=== PATIENT | male | born 1955 | race Caucasian/White ===

== ENCOUNTER 2018-02-13 13:24 | Outpatient (CLI) | payer BC, MEDICARE ==
[2018-02-13 14:16] LABS: #Basophils 0.1 thou/uL (0.0-0.2); #Eosinphils 0.2 thou/uL (0.0-0.7); #Lymphocytes 1.6 thou/uL (1.20-3.40); #Monocytes 0.7 thou/uL (0.11-0.59); #Neutrophils 4.1 thou/uL (1.40-6.50); %Basophils 0.9 % (0.0-1.0); %Eosinophils 3.1 % (0.0-10.0); %Lymphocytes 23.7 % (21.0-51.0); %Monocytes 10.7 % (0.0-10.0); %Neutrophils 61.6 % (42.0-75.0); Hemoglobin 13.8 g/dL (14.0-18.0); Mean Corpuscular HGB CONC 32.9 g/dL (32.0-36.0); Mean Corpuscular Hemoglobin 30.5 pg (27.0-31.0); Mean Corpuscular Volume 92.8 fL (78.0-98.0); Mean Platelet Volume 7.3 fL (7.4-10.4); Platelet Count 239 thou/uL (130-400); RBC Distribution Width 11.6 % (11.5-14.5); Red Blood Cell (RBC) Count 4.53 mill/uL (4.70-6.10); White Blood Cell (WBC) Count 6.6 thou/uL (4.8-10.8)
[2018-02-13 14:35] LABS: Anion Gap 10 mmol/L (10-20); BUN (Urea Nitrogen) 14 mg/dL (8.4-25.7); Calc. Creatinine Clearance 0 mL/min (70-130); Calcium 9.1 mg/dL (7.8-10.44); Carbon Dioxide 24 mmol/L (23-31); Chloride 105 mmol/L (98-107); Estimated GFR-MDRD Greater than 90; Glucose 89 mg/dL (80-115); Potassium 4.4 mmol/L (3.5-5.1); Sodium 135 mmol/L (136-145)
== END 2018-02-13 13:25 | disposition home or self-care (01) ==
LOC: LABBT 13:24
PROVIDERS: ATTEND Surgery
DX: Z01.818 Encounter for other preprocedural examination (principal); K64.8 Other hemorrhoids
CPT/HCPCS: 80048; 85025; 93005; 93010

== ENCOUNTER 2018-02-15 06:47 | Day surgery (SDC) | payer BC, MEDICARE ==
[2018-02-13 14:24] VITALS: BMI 35.1
[2018-02-15] MEDS ORDERED: cefOXitin 2 GM VIAL ONE (08:13)
[2018-02-15] MEDS ORDERED: Sodium Chloride 0.9% 100 ML ONE (08:13)
[2018-02-15] MEDS ORDERED: Lidocaine 2% PF 5 ML VIAL ONE (08:20)
[2018-02-15] MEDS ORDERED: Lidocaine 2% Jelly 5 ML TUBE ONE (08:20)
[2018-02-15] MEDS ORDERED: Bupivacaine/Epinephrine 0.25% 30 ML VIAL ONE (08:20)
[2018-02-15] MEDS ORDERED: Fentanyl 100 MCG/2 ML VIAL ONE ×2 (08:26→09:36)
[2018-02-15] MEDS ORDERED: HYDROcodone/Acetaminophen 5/325 mg Tablet ONE (10:16)
--- NOTE | 2018-02-15 11:59 | OP ---
DATE OF PROCEDURE: 02/15/2018 PREOPERATIVE DIAGNOSIS: Prolapsing internal hemorrhoids. POSTOPERATIVE DIAGNOSIS: Prolapsing internal hemorrhoids. PROCEDURE PERFORMED: PPH stapled hemorrhoidectomy. SURGEON: Venkata Wells M.D. ANESTHESIA: General. ESTIMATED BLOOD LOSS: Minimal. COMPLICATIONS: None. SPECIMEN: Hemorrhoid. TECHNIQUE: The patient was taken to the operating room and placed supine on the table. After genera l anesthetic was obtained, he was placed in prone position. His buttock taped open. His area is prepped and draped in a sterile fashion. Rectal exam reveals prolapsing internal hemorrhoid s, but no mass. The sphincter protecting device internal obturator was placed. The sphincter protec ting device is sewn in place using enclosed silk. The 2-0 Prolene was used to make a pursestring 2 c m above the dentate line. Stapler was opened to its fullest extent. The anvil was placed above the pursestring. The sutures for the pursestring are pulled through the stapler under tension held on th e sutures. The stapler is tightened down to the green zone. It is fired. There is a good ring of s taple line and a good ring of hemorrhoid tissue. A few bleeders on the staple line were oversewn usi ng Vicryl suture. There is no active bleeding. Gelfoam and lidocaine jelly packed in the anal canal . The sphincter protector was removed. The patient is en route to recovery in stable condition. Al l instrument counts, needle counts, lap counts were correct.
== END 2018-02-15 11:38 | disposition home or self-care (01) ==
LOC: SDC 06:47
PROVIDERS: ATTEND Surgery
PROC: 065Y0ZC Destruction of Hemorrhoidal Plexus, Open Approach (ICD-10-PCS; principal; 2018-02-15)
DX: K64.8 Other hemorrhoids (principal); K64.4 Residual hemorrhoidal skin tags; I10 Essential (primary) hypertension; Z79.82 Long term (current) use of aspirin; Z79.899 Other long term (current) drug therapy
CPT/HCPCS: 88304; 96374; J0131; J0694; J2001; J3010; J7050

== ENCOUNTER 2019-01-10 08:33 | Outpatient (CLI) | payer BC, MEDICARE ==
[2019-01-10 12:45] LABS: #Basophils 0.1 thou/uL (0.0-0.2); #Eosinphils 0.3 thou/uL (0.0-0.7); #Lymphocytes 2.7 thou/uL (1.20-3.40); #Monocytes 0.8 thou/uL (0.11-0.59); #Neutrophils 5.2 thou/uL (1.40-6.50); %Eosinophils 3.3 % (0.0-10.0); %Monocytes 8.9 % (0.0-10.0); %Neutrophils 56.8 % (42.0-75.0); Hemoglobin 14.5 g/dL (14.0-18.0); Mean Corpuscular HGB CONC 33.4 g/dL (32.0-36.0); Mean Corpuscular Hemoglobin 30.5 pg (27.0-31.0); Mean Corpuscular Volume 91.4 fL (78.0-98.0); Mean Platelet Volume 7.1 fL (7.4-10.4); Platelet Count 228 thou/uL (130-400); RBC Distribution Width 12.3 % (11.5-14.5); Red Blood Cell (RBC) Count 4.75 mill/uL (4.70-6.10); White Blood Cell (WBC) Count 9.1 thou/uL (4.8-10.8)
[2019-01-10 12:49] LABS: INR-International Normal Ratio 0.9; Prothrombin Time 12.6 SEC (12.0-14.7)
[2019-01-10 13:06] LABS: Anion Gap 16 mmol/L (10-20); BUN (Urea Nitrogen) 17 mg/dL (8.4-25.7); Calc. Creatinine Clearance 0 mL/min (70-130); Calcium 9.5 mg/dL (7.8-10.44); Carbon Dioxide 23 mmol/L (23-31); Chloride 104 mmol/L (98-107); Estimated GFR-MDRD 73; Glucose 94 mg/dL (80-115); Potassium 4.4 mmol/L (3.5-5.1); Sodium 139 mmol/L (136-145)
[2019-01-10 15:18] LABS: Bilirubin Negative (Negative); Blood, Urine Negative (Negative); Clarity Clear (Clear); Glucose, Urine (Dipstick) Normal (Negative); Leukocyte Negative Leu/uL (Negative); Mucous/LPF 2+ LPF (<2+); Nitrite Negative (Negative); Protein, Urine (Dipstick) 10 mg/dL (Neg-Trace); RBC/HPF 0-3 HPF (0-3); Squamous Epithelial None Seen HPF (0-3); Urobilinogen Normal mg/dL (Less than 2); WBC/HPF 0-3 HPF (0-3)
[2019-01-10 15:27] LABS: Bacteria/HPF None Seen HPF (None Seen)
== END 2019-01-10 08:34 | disposition home or self-care (01) ==
LOC: LABBT 08:33
PROVIDERS: ATTEND Orthopaedic Surgery
DX: Z01.818 Encounter for other preprocedural examination (principal); M17.11 Unilateral primary osteoarthritis, right knee
CPT/HCPCS: 80048; 81001; 85025; 85610; 87081; 93005; 93010

== ENCOUNTER 2019-01-10 17:00 | Inpatient (IN) | payer BC, MEDICARE ==
[2019-01-10 12:40] VITALS: BMI 34.0
[2019-01-21] MEDS ORDERED: Sodium Chloride 0.9% 100 ML ONE (07:08)
[2019-01-21] MEDS ORDERED: Tranexamic Acid 1,000 MG/10 ML VIAL ONE ×2 (07:08→11:37)
[2019-01-21] MEDS ORDERED: Vancomycin HCl 1.5 GM in Sodium Chloride 0.9% 250 ML 300 ML IVPB SCH ×3 (07:15→10:45)
[2019-01-21 07:48] LABS: Prothrombin Time 13.2 SEC (12.0-14.7)
[2019-01-21] MEDS ORDERED: Midazolam HCl 2 mg/2 ml Vial ONE (07:56)
[2019-01-21] MEDS ORDERED: Fentanyl 100 MCG/2 ML VIAL ONE ×4 (07:56→12:16)
[2019-01-21] MEDS ORDERED: traMADol HCl 50 MG TAB PO PRN (08:22)
[2019-01-21] MEDS ORDERED: Promethazine HCl 25 MG/ML VIAL IM PRN ×3 (08:22→12:54)
[2019-01-21] MEDS ORDERED: Ondansetron PF 4 MG/2 ML Vial IVP PRN ×2 (08:22→09:46)
[2019-01-21] MEDS ORDERED: Zolpidem Tartrate 5 MG TAB PO PRN ×2 (08:22→09:46)
[2019-01-21] MEDS ORDERED: Ropivacaine HCl/PF 250 ML in Premix Bag 1 BAG NERVE BLCK SCH (08:22)
[2019-01-21] MEDS ORDERED: HYDROcodone/Acetaminophen 10/325 mg Tablet PO PRN (08:22)
[2019-01-21] MEDS ORDERED: Acetaminophen 325 MG TAB PO PRN (09:46)
[2019-01-21] MEDS ORDERED: cloNIDine 0.1 MG TAB PO PRN (09:49)
[2019-01-21] MEDS ORDERED: Tranexamic Acid 1,000 MG in Sodium Chloride 0.9% 100 ML IVPB SCH (10:00)
[2019-01-21] MEDS ORDERED: Morphine 10 MG/ML VIAL ONE (10:11)
[2019-01-21] MEDS ORDERED: Bupivacaine PF 0.5% 30 ML VIAL ONE (10:19)
--- NOTE | 2019-01-21 11:41 | OP ---
DATE OF PROCEDURE: 01/21/2019 SILVER [employer]ER BLASTING: Young To PA-C PREOPERATIVE DIAGNOSES: Right knee osteoarthrosis. POSTOPERATIVE DIAGNOSES: Right knee osteoarthrosis. PROCEDURE PERFORMED: Right total knee replacement using Emeli pinless navigation. ESTIMATED BLOOD LOSS: 150 mL. TOURNIQUET TIME: NONE. COMPLICATIONS: None. IMPLANTS: [place] [employer] total knee system, we used a size 6 cruciate- retaining femur. We used a size 6 primary tibial baseplate. We used a 6 x 9 mm CS X3 tibial bearing and an asymmetric 35 x 10 X3 patella. DISPOSITION: He did go to recovery room in stable condition. INDICATIONS: This is a 63-year-old male, who comes in complaining of significant right knee pain. He has failed nonoperative treatment. The patient has a previous history of dysvascular leg and has had multiple stents in the right leg. PROCEDURE IN DETAIL: After all appropriate consent forms were explained and signed, the patient was taken back to the operating room and at this time was given general anesthetic. Once the level of anesthesia was appropriate, the right leg was then prepped and draped in standard surgical fashion. Midline incision was made with a 10 blade down through the skin and subcutaneous tissue. Bovie electrocautery was used to coagulate any brisk venous bleeding. A new blade was used to make a medial parapatellar arthrotomy. Small subperiosteal release was performed medially and excess fat pad was removed. The knee was flexed up to gain access to the femur. The femur was navigated and distal femoral resection was made. Epicondylar access was used to align our sizing jig and this was pinned in place. We sized our femur to be a size 6 cruciate-retaining femur. 4:1 cutting block was applied and pinned. Anterior and posterior chamfer cuts were then made. We navigated out our proximal tibia and made our proximal tibial resection. Spreaders were used to remove any posterior osteophytes off the back of the femur as well as remaining meniscal tissue. A long alignment ginny was then used to achieve correct rotation of our tibial baseplate and we used a size 6 primary tibial baseplate was chosen. This was pinned in place. We trialed the polyethylene and we used a 6 x 9 mm CS X3 tibial bearing polyethylene gave us full extension and good stability throughout range of motion. Two towel clips and a saw were used to cut our patella. Three lug nuts were drilled and an asymmetric 35 x 10 X3 patella was trialed which sat nicely in the trochlear groove. We then drilled our femur and punched our tibia. All components were removed. The knee was thoroughly irrigated and dried. Cement was mixed into the cement gun on the back table. Components were then placed. The knee was held out in full extension until the cement had dried. All excess bone cement was removed. Multiple #2 Vicryl stitches as well as a Quill were used to close our extensor mechanism. 0 Quill followed by a running Monoderm was then used to close the skin. Surgicel glue was then used on the skin. Once this had dried, soft tissue dressing was applied to the limb, The patient was then awakened and taken to the recovery room in stable condition. All counts were correct at the end of the case. The patient did receive preoperative IV antibiotics. The patient was injected with Marcaine for postoperative pain relief. Job ID: [id number] [facility]
[2019-01-21] MEDS ORDERED: Morphine 4 MG/ML VIAL ONE (12:33)
[2019-01-21] MEDS ORDERED: Promethazine HCl 25 MG/ML VIAL IM/IV PRN (12:37)
[2019-01-21] MEDS ORDERED: PACU-Morphine 4MG/ML VIAL SLOW IVP PRN (12:37)
[2019-01-21] MEDS ORDERED: Morphine Sulfate 2 MG/ML SYRINGE SLOW IVP PRN (12:37)
[2019-01-21] MEDS ORDERED: Non-Formulary Medication 1 EACH PO PRN (12:37)
[2019-01-21] MEDS ORDERED: Ondansetron HCl/PF 4 MG/2 ML Vial IVP PRN ×2 (12:37→12:54)
[2019-01-21] MEDS ORDERED: Ketorolac Tromethamine 30 MG/ML VIAL ONE (12:50)
[2019-01-21] MEDS ORDERED: Promethazine HCl 25 MG/ML VIAL SLOW IVP PRN (12:54)
[2019-01-21] MEDS ORDERED: Bupivacaine HCl 0.5%/Epinephrine 1:200,000/PF 30 ml Vial ONE (13:31)
[2019-01-21] MEDS ORDERED: Ropivacaine 0.2% HCl/PF (40 MG/20 ML VIAL) ONE (13:31)
[2019-01-21] MEDS ORDERED: Ropivacaine 0.5% HCl/PF (150 MG/30 ML VIAL) ONE (13:31)
[2019-01-21] MEDS ORDERED: PROPOFOL 200 MG/20 ML VIAL ONE (13:55)
[2019-01-21] MEDS ORDERED: Ondansetron PF 4 MG/2 ML Vial ONE (13:55)
[2019-01-21] MEDS ORDERED: Lidocaine 1% PF 5 ML VIAL ONE (13:55)
[2019-01-21] MEDS ORDERED: ePHEDrine 50 MG/ML VIAL ONE (13:55)
[2019-01-21] MEDS: Ketorolac Tromethamine 30 MG/ML VIAL IVP SCH ×3 (14:32→23:15)
[2019-01-21] MEDS: Sodium Chloride 0.9% 1,000 ML IV SCH ×2 (14:32→21:47)
[2019-01-21] MEDS: HYDROcodone/Acetaminophen 10/325 mg Tablet PO PRN ×2 (14:37→21:17)
[2019-01-21] MEDS: CEFAZOLIN 2 GM in Premix Bag 1 BAG IVPB SCH ×2 (14:39→23:16)
[2019-01-21] MEDS: Ferrous Gluconate 324 MG TAB PO SCH (20:33)
[2019-01-21] MEDS: Ezetimibe 10 MG TAB PO SCH (20:33)
[2019-01-21] MEDS: Atorvastatin Calcium 40 MG TAB PO SCH (20:33)
[2019-01-21] MEDS: Aspirin 81 mg Enteric Coated Tablet PO SCH (20:33)
[2019-01-21] MEDS: Loratadine 10 MG TAB PO SCH (20:34)
[2019-01-21] MEDS: Senokot S 8.6-50 MG TAB PO SCH (20:34)
[2019-01-21] MEDS: Azelastine 137 MCG/Spray 30 ML FS SCH (21:12)
[2019-01-22] MEDS: HYDROcodone/Acetaminophen 10/325 mg Tablet PO PRN ×6 (02:10→22:31)
[2019-01-22] MEDS: Sodium Chloride 0.9% 1,000 ML IV SCH ×2 (03:33→17:03)
[2019-01-22 04:41] LABS: Hemoglobin 11.1 g/dL (14.0-18.0); Mean Corpuscular HGB CONC 34.5 g/dL (32.0-36.0); Mean Corpuscular Hemoglobin 31.7 pg (27.0-31.0); Mean Platelet Volume 7.2 fL (7.4-10.4); Platelet Count 172 thou/uL (130-400); RBC Distribution Width 11.9 % (11.5-14.5); Red Blood Cell (RBC) Count 3.51 mill/uL (4.70-6.10); White Blood Cell (WBC) Count 8.7 thou/uL (4.8-10.8)
[2019-01-22] MEDS: Ketorolac Tromethamine 30 MG/ML VIAL IVP SCH ×3 (05:08→17:39)
[2019-01-22] MEDS: traMADol HCl 50 MG TAB PO PRN ×2 (05:14→12:42)
[2019-01-22] MEDS: Polyethylene Glycol 3350 17 GM Packet PO SCH (07:59)
[2019-01-22] MEDS: Multivitamin W/ Minerals 1 TAB PO SCH (08:00)
[2019-01-22] MEDS: Allopurinol 300 MG TAB PO SCH (08:00)
[2019-01-22] MEDS: Metoprolol Tartrate 50 MG TAB PO SCH (08:00)
[2019-01-22] MEDS: Ferrous Gluconate 324 MG TAB PO SCH ×2 (08:00→21:00)
[2019-01-22] MEDS: Senokot S 8.6-50 MG TAB PO SCH ×2 (08:00→21:01)
[2019-01-22] MEDS: Fish Oil 1,000 MG CAP PO SCH (08:00)
[2019-01-22] MEDS: Clopidogrel Bisulfate 75 MG TAB PO SCH (08:01)
[2019-01-22] MEDS: Amlodipine 5 MG TAB PO SCH (08:01)
[2019-01-22] MEDS: Aspirin 81 mg Enteric Coated Tablet PO SCH ×2 (08:01→21:00)
[2019-01-22] MEDS: Losartan 25 MG TAB PO SCH (08:02)
[2019-01-22] MEDS: Azelastine 137 MCG/Spray 30 ML FS SCH ×2 (08:10→21:06)
[2019-01-22] MEDS: Fentanyl 100 MCG/2 ML VIAL SLOW IVP PRN (09:18)
[2019-01-22] MEDS: Fluticasone Propionate Nasal Spray 16 gm Bottle NASAL SCH (10:24)
--- NOTE | 2019-01-22 11:01 | PRG ---
DATE OF SERVICE: 01/22/2019 SUBJECTIVE: Edgardo is a 63-year-old male who is postop day 1 from a right total knee arthroplasty. He is doing relatively well. His pain is very well controlled with block and his oral medications. He has no complaints currently. Edgardo walked 300 feet this morning. OBJECTIVE: VITAL SIGNS: Temperature 98.2, pulse 72, respiratory rate 18, blood pressure is 134/71. GENERAL: He is alert and oriented to person, place, time, and situation. Responsive to appropriate with examiner. Grossly nonfocal. EXTREMITIES: His incision is clean. There is no strike through. No erythema. NEUROLOGIC: He is neurovascularly intact. LABORATORY DATA: Hemoglobin and hematocrit 11.1 and 32.2. IMPRESSION: A 63-year-old male postop day 1, right total knee arthroplasty doing exceptionally well. PLAN: Continue current care. Probable discharge home tomorrow. Job ID: [id number]
[2019-01-22] MEDS ORDERED: Polyethylene Glycol 3350 17 GM Packet PO PRN (11:10)
--- NOTE | 2019-01-22 19:15 | PDOC.HOSPP ---
- Subjective Encounter Date: 01/22/19 Encounter Time: 15:00 Subjective: pt up in chair no complains - Objective Vital Signs & Weight: Vital Signs (12 hours) Temp Pulse Resp BP BP Pulse Ox 01/22/19 15:20 98.5 F 69 18 152/73 H 97 01/22/19 08:01 72 134/71 01/22/19 07:53 98.2 F 72 18 134/71 98 Weight Admit Weight 258 lb Weight 258 lb I&O: 01/21/19 01/22/19 01/23/19 06:59 06:59 06:59 Intake Total 1550 Balance 1550 Result Diagrams: 01/22/19 03:53 Hospitalist ROS - Review of Systems Respiratory: denies: cough, dry, shortness of breath, hemoptysis, SOB with excertion, pleuritic pain, sputum, wheezing, other Cardiovascular: denies: chest pain, palpitations, orthopnea, paroxysmal noc. dyspnea, edema, light headedness, other Gastrointestinal: denies: nausea, vomiting, abdominal pain, diarrhea, constipation, melena, hematochezia, other - Medication Medications: Active Medications Generic Name Dose Route Start Last Admin Trade Name Freq PRN Reason Stop Dose Admin Hydrocodone Bitart/Acetaminophen 2 tab 01/21/19 08:22 01/22/19 18:33 [place] 10/325 PO 2 tab Q4H PRN Administration PAIN (4-6) Allopurinol 300 mg 01/22/19 09:00 01/22/19 08:00 Zyloprim PO 300 mg DAILY GERARD Administration Amlodipine Besylate 2.5 mg 01/22/19 09:00 01/22/19 08:01 Norvasc PO 2.5 mg DAILY GERARD Administration Aspirin 81 mg 01/21/19 21:00 01/22/19 08:01 Ecotrin PO 81 mg BID GERARD Administration Atorvastatin Calcium 80 mg 01/21/19 21:00 01/21/19 20:33 Lipitor PO 80 mg QPM GERARD Administration Azelastine HCl 0 ml 01/21/19 21:00 01/22/19 08:10 Azelastine FS 2 spr BID GERARD Administration Cholecalciferol 1,000 units 01/22/19 09:00 01/22/19 08:02 Vitamin D3 PO 1,000 units DAILY GERARD Administration Clopidogrel Bisulfate 75 mg 01/22/19 09:00 01/22/19 08:01 Plavix PO 75 mg DAILY GERARD Administration Ezetimibe 10 mg 01/21/19 21:00 01/21/19 20:33 Zetia PO 10 mg HS GERARD Administration Fentanyl 50 mcg 01/21/19 08:23 01/22/19 09:18 Sublimaze SLOW IVP 50 mcg Q1H PRN Administration Breakthrough Pain Ferrous Gluconate 324 mg 01/21/19 21:00 01/22/19 08:00 Fergon PO 324 mg BID GERARD Administration Fish Oil 1,000 mg 01/22/19 09:00 01/22/19 08:00 Fish Oil PO 1,000 mg DAILY GERARD Administration Fluticasone Propionate 0 gm 01/22/19 09:00 01/22/19 10:24 Flonase Nasal [place] NASAL 2 spray DAILY GERARD Administration Ropivacaine 250 ml/ Device 250 mls @ 10 mls/hr 01/21/19 08:22 01/22/19 12:36 NERVE BLCK 250 mls INF GERARD Administration As Directed Sodium Chloride 1,000 mls @ 100 mls/hr 01/21/19 10:00 01/22/19 17:03 Normal Saline 0.9% IV Not Given .Q10H GERARD Iron/Minerals/Multivitamins 1 tab 01/22/19 09:00 01/22/19 08:00 Theragran M PO 1 tab DAILY GERARD Administration Ketorolac Tromethamine 30 mg 01/21/19 12:00 01/22/19 17:39 Toradol IVP 01/23/19 06:01 30 mg Q6HR GERARD Administration Loratadine 10 mg 01/21/19 21:00 01/21/19 20:34 Claritin PO 10 mg QPM GERARD Administration Losartan Potassium 100 mg 01/22/19 09:00 01/22/19 08:02 Cozaar PO 100 mg DAILY GERARD Administration Metoprolol Tartrate 50 mg 01/22/19 09:00 01/22/19 08:00 Lopressor PO 50 mg DAILY GERARD Administration Pantoprazole Sodium 40 mg 01/22/19 09:00 01/22/19 08:00 Protonix PO 40 mg DAILY GERARD Administration Polyethylene Glycol 17 gm 01/22/19 09:00 01/22/19 07:59 Miralax PO 17 gm DAILY GERARD Administration Senna/Docusate Sodium 2 tab 01/21/19 21:00 01/22/19 08:00 Senokot S PO 2 tab BID GERARD Administration Sodium Chloride 10 ml 01/21/19 09:46 01/22/19 08:00 Flush - Normal Saline IVF 10 ml PRN PRN Administration Saline Flush Tramadol HCl 100 mg 01/21/19 08:22 01/22/19 12:42 Ultram PO 100 mg Q6H PRN Administration Moderate Pain 4-6 Vitamin E 1,000 units 01/22/19 09:00 01/22/19 10:24 Vitamin E PO 1,000 units DAILY GERARD Administration - Exam Heart: negative: RRR, no murmur, no gallops, no rubs, normal peripheral pulses, irregular, diminshed peripheral pulses, murmur present, II/IV, III/IV Respiratory: negative: CTAB, no wheezes, no rales, no ronchi, normal chest expansion, no tachypnea, normal percussion, rales, rhonchi, tachypneic, wheezes Gastrointestinal: negative: soft, non-tender, non-distended, normal bowel sounds , no palpable masses, no hepatomegaly, no splenomegaly, no bruit, no guarding, no rigidity, tender to palpation, distended, diminished bowl sounds, voluntary guarding Hosp A/P (1) CAD (coronary artery disease) Code(s): I25.10 - ATHSCL HEART DISEASE OF [place] CORONARY ARTERY W/O ANG PCTRS Status: Acute (2) HTN (hypertension) Code(s): I10 - ESSENTIAL (PRIMARY) HYPERTENSION Status: Acute (3) Hyperlipemia Code(s): E78.5 - HYPERLIPIDEMIA, UNSPECIFIED Status: Acute - Plan pt up in chair no complains, will continue his bp meds, pt has CAD s/o 10 stents. will continue asa/plavix/statin.
[2019-01-22] MEDS: Ezetimibe 10 MG TAB PO SCH (21:00)
[2019-01-22] MEDS: Atorvastatin Calcium 40 MG TAB PO SCH (21:01)
[2019-01-22] MEDS: Loratadine 10 MG TAB PO SCH (21:01)
[2019-01-23] MEDS: Ketorolac Tromethamine 30 MG/ML VIAL IVP SCH ×2 (00:43→06:17)
[2019-01-23] MEDS: ALPRAZolam 0.5 MG TAB PO PRN ×2 (01:36→20:52)
[2019-01-23] MEDS: traMADol HCl 50 MG TAB PO PRN ×2 (01:36→23:04)
[2019-01-23] MEDS: diphenhydrAMINE 25 MG CAP PO PRN ×3 (01:36→23:04)
[2019-01-23] MEDS: Sodium Chloride 0.9% 1,000 ML IV SCH ×3 (03:01→22:59)
[2019-01-23 06:17] LABS: Hemoglobin 10.5 g/dL (14.0-18.0); Mean Corpuscular HGB CONC 33.5 g/dL (32.0-36.0); Mean Corpuscular Hemoglobin 31.1 pg (27.0-31.0); Mean Corpuscular Volume 92.6 fL (78.0-98.0); Mean Platelet Volume 7.2 fL (7.4-10.4); Platelet Count 171 thou/uL (130-400); Red Blood Cell (RBC) Count 3.38 mill/uL (4.70-6.10); White Blood Cell (WBC) Count 8.7 thou/uL (4.8-10.8)
[2019-01-23] MEDS: HYDROcodone/Acetaminophen 10/325 mg Tablet PO PRN ×2 (06:23→12:42)
[2019-01-23] MEDS: Losartan 25 MG TAB PO SCH (09:08)
[2019-01-23] MEDS: Polyethylene Glycol 3350 17 GM Packet PO SCH (09:08)
[2019-01-23] MEDS: Amlodipine 5 MG TAB PO SCH (09:10)
[2019-01-23] MEDS: Allopurinol 300 MG TAB PO SCH (09:12)
[2019-01-23] MEDS: Aspirin 81 mg Enteric Coated Tablet PO SCH ×2 (09:12→21:03)
[2019-01-23] MEDS: Clopidogrel Bisulfate 75 MG TAB PO SCH (09:12)
[2019-01-23] MEDS: Multivitamin W/ Minerals 1 TAB PO SCH (09:12)
[2019-01-23] MEDS: Fish Oil 1,000 MG CAP PO SCH (09:13)
[2019-01-23] MEDS: Ferrous Gluconate 324 MG TAB PO SCH ×2 (09:13→21:03)
[2019-01-23] MEDS: Metoprolol Tartrate 50 MG TAB PO SCH (09:13)
[2019-01-23] MEDS: Azelastine 137 MCG/Spray 30 ML FS SCH ×2 (09:14→21:12)
[2019-01-23] MEDS: Senokot S 8.6-50 MG TAB PO SCH ×2 (09:15→21:03)
[2019-01-23] MEDS: Fluticasone Propionate Nasal Spray 16 gm Bottle NASAL SCH (09:15)
[2019-01-23] MEDS: Fentanyl 100 MCG/2 ML VIAL SLOW IVP PRN (20:45)
[2019-01-23] MEDS: Atorvastatin Calcium 40 MG TAB PO SCH (21:02)
[2019-01-23] MEDS: Ezetimibe 10 MG TAB PO SCH (21:03)
[2019-01-23] MEDS: Loratadine 10 MG TAB PO SCH (21:03)
[2019-01-23] MEDS ORDERED: Lidocaine 2% Viscous Solution 10 ML, Aluminum & Magnesium Hydroxide 30 ML SSW SCH (23:59)
[2019-01-24] MEDS: HYDROcodone/Acetaminophen 10/325 mg Tablet PO PRN ×2 (03:01→08:46)
[2019-01-24 05:21] LABS: Hemoglobin 10.7 g/dL (14.0-18.0); Mean Corpuscular HGB CONC 35.2 g/dL (32.0-36.0); Mean Corpuscular Hemoglobin 31.5 pg (27.0-31.0); Mean Corpuscular Volume 89.6 fL (78.0-98.0); Mean Platelet Volume 7.6 fL (7.4-10.4); Platelet Count 178 thou/uL (130-400); RBC Distribution Width 11.7 % (11.5-14.5); Red Blood Cell (RBC) Count 3.39 mill/uL (4.70-6.10); White Blood Cell (WBC) Count 8.2 thou/uL (4.8-10.8)
[2019-01-24] MEDS: diphenhydrAMINE 25 MG CAP PO PRN (05:38)
[2019-01-24] MEDS: traMADol HCl 50 MG TAB PO PRN ×2 (05:39→11:37)
[2019-01-24] MEDS: Aspirin 81 mg Enteric Coated Tablet PO SCH (08:42)
[2019-01-24] MEDS: Losartan 25 MG TAB PO SCH (08:42)
[2019-01-24] MEDS: Multivitamin W/ Minerals 1 TAB PO SCH (08:44)
[2019-01-24] MEDS: Clopidogrel Bisulfate 75 MG TAB PO SCH (08:44)
[2019-01-24] MEDS: Amlodipine 5 MG TAB PO SCH (08:44)
[2019-01-24] MEDS: Fish Oil 1,000 MG CAP PO SCH (08:44)
[2019-01-24] MEDS: Ferrous Gluconate 324 MG TAB PO SCH (08:45)
[2019-01-24] MEDS: Allopurinol 300 MG TAB PO SCH (08:45)
[2019-01-24] MEDS: Senokot S 8.6-50 MG TAB PO SCH (08:46)
[2019-01-24] MEDS: Metoprolol Tartrate 50 MG TAB PO SCH (08:46)
[2019-01-24] MEDS: Fluticasone Propionate Nasal Spray 16 gm Bottle NASAL SCH (08:51)
[2019-01-24] MEDS: Azelastine 137 MCG/Spray 30 ML FS SCH (08:51)
[2019-01-24] MEDS: Sodium Chloride 0.9% 1,000 ML IV SCH (09:13)
[2019-01-24] MEDS: Polyethylene Glycol 3350 17 GM Packet PO SCH (09:52)
[2019-01-24 11:51] VITALS: BP 148/80; TEMP 98.2
== END 2019-01-24 12:20 | disposition home or self-care (01) | DRG 470 ==
LOC: SJJU 01-21 06:42
PROVIDERS: ADMIT Orthopaedic Surgery; ATTEND Orthopaedic Surgery
PROC: 0SRC0J9 Replacement of Right Knee Joint with Synthetic Substitute, Cemented, Open Approach (ICD-10-PCS; principal; 2019-01-21)
DX: M17.11 Unilateral primary osteoarthritis, right knee (principal); K59.00 Constipation, unspecified; M10.9 Gout, unspecified; I10 Essential (primary) hypertension; E78.00 Pure hypercholesterolemia, unspecified; K21.9 Gastro-esophageal reflux disease without esophagitis; G47.30 Sleep apnea, unspecified; I25.10 Atherosclerotic heart disease of native coronary artery without angina pectoris; E78.5 Hyperlipidemia, unspecified; Z79.899 Other long term (current) drug therapy; Z79.01 Long term (current) use of anticoagulants; Z79.51 Long term (current) use of inhaled steroids; Z95.5 Presence of coronary angioplasty implant and graft
CPT/HCPCS: 36415; 85027; 85610; 86850; 86900; 86901; C1713; C1776; J0131; J0670; J0690; J1885; J2001; J2250; J2270; J2405; J2704; J2795; J3010; J3370; J3490; J7050; Q0163; S0020

== ENCOUNTER 2019-03-15 07:26 | Outpatient (CLI) | payer BC, MEDICARE ==
[2019-03-15 14:33] LABS: #Basophils 0.1 thou/uL (0.0-0.2); #Eosinphils 0.3 thou/uL (0.0-0.7); #Lymphocytes 2.3 thou/uL (1.20-3.40); #Monocytes 0.7 thou/uL (0.11-0.59); #Neutrophils 5.2 thou/uL (1.40-6.50); %Eosinophils 3.7 % (0.0-10.0); %Lymphocytes 26.8 % (21.0-51.0); %Monocytes 8.3 % (0.0-10.0); %Neutrophils 60.2 % (42.0-75.0); Mean Corpuscular HGB CONC 32.3 g/dL (32.0-36.0); Mean Corpuscular Hemoglobin 30.2 pg (27.0-31.0); Mean Corpuscular Volume 93.7 fL (78.0-98.0); Mean Platelet Volume 6.5 fL (7.4-10.4); Platelet Count 254 thou/uL (130-400); RBC Distribution Width 12.6 % (11.5-14.5); Red Blood Cell (RBC) Count 4.31 mill/uL (4.70-6.10); White Blood Cell (WBC) Count 8.7 thou/uL (4.8-10.8)
[2019-03-15 14:38] LABS: Prothrombin Time 12.8 SEC (12.0-14.7)
[2019-03-15 14:52] LABS: Anion Gap 8 mmol/L (10-20); BUN (Urea Nitrogen) 14 mg/dL (8.4-25.7); Calc. Creatinine Clearance 0 mL/min (70-130); Calcium 9.3 mg/dL (7.8-10.44); Carbon Dioxide 30 mmol/L (23-31); Chloride 103 mmol/L (98-107); Estimated GFR-MDRD 57; Glucose 90 mg/dL (80-115); Potassium 4.9 mmol/L (3.5-5.1); Sodium 136 mmol/L (136-145)
--- NOTE | 2019-03-17 14:30 | EKG ---
Test Reason : Blood Pressure : / mmHG Vent. Rate : 062 BPM Atrial Rate : 062 BPM P-R Int : 238 ms QRS Dur : 082 ms QT Int : 404 ms P-R-T Axes : 015 021 015 degrees QTc Int : 410 ms Sinus rhythm with 1st degree A-V block Inferior infarct , age undetermined Abnormal ECG When compared with ECG of 10-JAN-2019 12:23, Inferior infarct is now Present Confirmed by KIMBERLYN WESLEY (2) on 03/17/2019 2:30:15 PM Referred By: LETTY Confirmed By:KIMBERLYN WESLEY
== END 2019-03-15 07:27 | disposition home or self-care (01) ==
LOC: LABBT 07:26
PROVIDERS: ATTEND Orthopaedic Surgery
DX: Z01.818 Encounter for other preprocedural examination (principal); S76.111A Strain of right quadriceps muscle, fascia and tendon, initial encounter
CPT/HCPCS: 80048; 85025; 85610; 93005; 93010

== ENCOUNTER 2019-03-18 05:58 | Day surgery (SDC) | payer BC, MEDICARE ==
[2019-03-15 13:49] VITALS: BMI 34.5
[2019-03-18] MEDS ORDERED: Fentanyl 100 MCG/2 ML VIAL ONE ×4 (06:15→08:55)
[2019-03-18] MEDS ORDERED: Midazolam HCl 2 mg/2 ml Vial ONE (06:15)
[2019-03-18 06:48] LABS: INR-International Normal Ratio 0.9; Prothrombin Time 12.2 SEC (12.0-14.7)
[2019-03-18] MEDS ORDERED: Bupivacaine PF 0.5% 30 ML VIAL ONE (07:52)
[2019-03-18] MEDS ORDERED: Promethazine HCl 25 MG/ML VIAL SLOW IVP PRN (07:53)
[2019-03-18] MEDS ORDERED: Promethazine HCl 25 MG/ML VIAL IM PRN (07:53)
[2019-03-18] MEDS ORDERED: Ondansetron HCl/PF 4 MG/2 ML Vial IVP PRN (07:53)
[2019-03-18] MEDS ORDERED: Morphine 4 MG/ML VIAL ONE (09:12)
--- NOTE | 2019-03-18 09:12 | OP ---
DATE OF PROCEDURE: 03/18/2019 PREOPERATIVE DIAGNOSIS: Quadriceps tendon tear, status post right total knee replacement. POSTOPERATIVE DIAGNOSIS: Quadriceps tendon tear, status post right total knee replacement. PROCEDURE PERFORMED: Open repair of right quad tendon rupture. CUTTER ALUMINUM SHEET: Young To PA-C ESTIMATED BLOOD LOSS: 20 to 30 mL. COMPLICATIONS: None. ANESTHESIA: He had a general anesthetic. We did give him some local for postop pain relief. IMPLANTS: The only implants were some sutures. INDICATIONS: A 63-year-old male, who had a knee replacement done around 2 months ago and at this time, he was found last week to have an area of his quad tendon repair that had opened up and he was having difficulty straightening his leg and also noted a bulge underneath the skin. At this time, he is taken for repair of this. DESCRIPTION OF PROCEDURE: After all appropriate consent forms were explained and signed, he was taken back to the operative room and at this time was given a general anesthetic. Once the level of anesthesia was appropriate, the right lower extremity was prepped and draped in standard surgical fashion. No tourniquet was used throughout this procedure. At this time, a 10 blade was used to incise through his old incision down through skin. Bovie was used to coagulate any brisk venous bleeding. Joint fluid was evacuated at this time since we got underneath the skin. We then made our way down to the quad tendon repair area and there was a small area approximately 1.5 to 2 cm in length, which had opened up. Everything else appeared intact. There was some granulation tissue in the area and this was removed with a curette and a rongeur. We then thoroughly irrigated with a liter of solution. At this time, multiple #2 Vicryl were used to close repair primarily, followed by a #2 Stratafix. We then used a 2-0 Vicryl and nylon sutures to close the remaining area. Prior to closing the skin, we did infiltrate medial and lateral skin flaps with plain Marcaine for postop pain relief. A bulky sterile dressing was then applied as well as a knee immobilizer. The patient was then awakened. He was taken to the recovery room in stable condition. All counts were correct at the end of the case and he did receive preoperative IV antibiotics. Job ID: [id number] [facility]
[2019-03-18] MEDS ORDERED: PROPOFOL 200 MG/20 ML VIAL ONE (09:33)
[2019-03-18] MEDS ORDERED: Ondansetron PF 4 MG/2 ML Vial ONE (09:33)
[2019-03-18] MEDS ORDERED: ePHEDrine/0.9% NaCl/PF SYRINGE 50 mg/10 ml ONE (09:33)
[2019-03-18] MEDS ORDERED: Morphine 2 MG/ML SYRINGE ONE ×2 (09:33→09:47)
[2019-03-18] MEDS ORDERED: HYDROcodone/Acetaminophen 5/325 mg Tablet ONE (10:27)
== END 2019-03-18 11:30 | disposition home or self-care (01) ==
LOC: SDC 05:58
PROVIDERS: ATTEND Orthopaedic Surgery
PROC: 0LQL0ZZ Repair Right Upper Leg Tendon, Open Approach (ICD-10-PCS; principal; 2019-03-18)
DX: S76.111A Strain of right quadriceps muscle, fascia and tendon, initial encounter (principal); I10 Essential (primary) hypertension; F10.21 Alcohol dependence, in remission; Z79.899 Other long term (current) drug therapy; Z95.5 Presence of coronary angioplasty implant and graft; Z96.651 Presence of right artificial knee joint
CPT/HCPCS: 85610; J0690; J2250; J2270; J2405; J2704; J3010; J3370; L1830; S0020

== ENCOUNTER 2019-05-20 09:07 | Outpatient (CLI) | payer BC, MEDICARE ==
--- NOTE | 2019-05-20 09:32 | RAD ---
EXAM: 3 views of the right foot HISTORY: Foot pain COMPARISON: None FINDINGS: 3 views of the right foot shows no evidence of acute fracture or dislocation. No soft tissu e swelling is seen. No degenerative changes are present. IMPRESSION: No evidence of acute osseous abnormality.
== END 2019-05-20 09:08 | disposition home or self-care (01) ==
LOC: SCSRAD 09:07
PROVIDERS: ATTEND Family Medicine
DX: S99.921A Unspecified injury of right foot, initial encounter (principal)

== ENCOUNTER 2021-02-08 12:38 | Outpatient (CLI) | payer MEDICARE, OTHER | END 2021-02-08 12:39 | disposition home or self-care (01) | LOC: TBSIIMAG 12:38 | PROVIDERS: ATTEND Orthopaedic Surgery | DX: M25.551 Pain in right hip (principal); S73.101A Unspecified sprain of right hip, initial encounter; M76.9 Unspecified enthesopathy, lower limb, excluding foot ==

== ENCOUNTER 2022-03-23 09:17 | Outpatient (CLI) | payer MEDICARE, OTHER ==
[2022-03-23] MEDS ORDERED: Iopamidol 370 76% 100 ML VIAL ONE (09:30)
== END 2022-03-23 09:18 | disposition home or self-care (01) ==
LOC: BICCT 09:17 → CT 09:18
PROVIDERS: ATTEND Radiology Radiation Oncology
DX: C25.9 Malignant neoplasm of pancreas, unspecified (principal); R91.8 Other nonspecific abnormal finding of lung field; K65.4 Sclerosing mesenteritis; Z98.890 Other specified postprocedural states
CPT/HCPCS: 71260; 74177; Q9967

== ENCOUNTER 2022-04-16 16:19 | Emergency (ER) | payer MEDICARE, OTHER ==
[~2022-04-16 16:19] MED LIST: Iopamidol-370 76% 500 ML 1 ML ONE
[2022-04-16 17:07] LABS: #Eosinphils 0.1 thou/uL (0.0-0.7); #Lymphocytes 1.3 thou/uL (1.20-3.40); #Monocytes 1.8 thou/uL (0.11-0.59); #Neutrophils 18.4 thou/uL (1.40-6.50); %Eosinophils 0.3 % (0.0-10.0); %Monocytes 8.2 % (0.0-10.0); %Neutrophils 85.5 % (42.0-75.0); Hemoglobin 8.7 g/dL (14.0-18.0); Mean Corpuscular HGB CONC 32.1 g/dL (32.0-36.0); Mean Corpuscular Hemoglobin 26.7 pg (27.0-31.0); Mean Corpuscular Volume 83.1 fl (78.0-98.0); Mean Platelet Volume 8.2 fL (7.4-10.4); Platelet Count 498 10x3/uL (130-400); Red Blood Cell (RBC) Count 3.25 mill/uL (4.70-6.10); White Blood Cell (WBC) Count 21.5 10x3/uL (4.8-10.8)
[2022-04-16] MEDS ORDERED: Vancomycin 1 GM/200 ML (FROZEN) BAG ONE (17:09)
[2022-04-16] MEDS ORDERED: Piperacillin/Tazobactam 4.5 GM VIAL ONE ×2 (17:10→17:19)
[2022-04-16 17:28] LABS: ALT (SGPT) 15 U/L (8-55); AST (SGOT) 19 U/L (5-34); Albumin 3.1 g/dL (3.4-4.8); Alkaline Phosphatase 90 U/L (40-110); Anion Gap 14 mmol/L (10-20); BUN (Urea Nitrogen) 14 mg/dL (8.4-25.7); Bilirubin, Total 0.7 mg/dL (0.2-1.2); Calc. Creatinine Clearance 0 mL/min (70-130); Calcium 8.9 mg/dL (7.8-10.44); Carbon Dioxide 23 mmol/L (23-31); Chloride 95 mmol/L (98-107); Estimated GFR 100; Glucose 153 mg/dL (80-115); Lipase 11 U/L (8-78); Potassium 3.8 mmol/L (3.5-5.1); Protein, Total 6.1 g/dL (5.8-8.1); Sodium 128 mmol/L (136-145)
[2022-04-16 17:37] LABS: Bilirubin Negative (Negative); Blood, Urine Negative (Negative); Clarity Clear (Clear); Glucose, Urine (Dipstick) Normal (Negative); Ketone, Urine Negative (Negative); Leukocyte Negative Leu/uL (Negative); Nitrite Negative (Negative); Protein, Urine (Dipstick) 20 mg/dL (Neg-Trace); Specific Gravity, Urine 1.029 (1.002-1.036); Urobilinogen Normal mg/dL (Less than 2); pH, Urine 5.5 (5.0-9.0)
[2022-04-16] MEDS ORDERED: Acetaminophen 500 MG TAB ONE (17:56)
[2022-04-16] MEDS ORDERED: Morphine 4 MG/ML VIAL ONE (18:58)
[2022-04-16 19:30] LABS: SARS-CoV-2 NAA Rapid Test Not Detected (NotDetected)
== END 2022-04-16 22:22 | disposition short-term general hospital (02) ==
LOC: ERS 16:19
DX: R50.9 Fever, unspecified (principal); I10 Essential (primary) hypertension; Z20.822 Contact with and (suspected) exposure to COVID-19; Z79.82 Long term (current) use of aspirin; Z79.899 Other long term (current) drug therapy
CPT/HCPCS: 74177; 80053; 81003; 83605; 83690; 85025; 86140; 87040; 87086; 93005; J3370; U0002; 93010; 96365; 96366; 96375; J2270; J2543; Q9967

== ENCOUNTER 2022-06-23 09:42 | Emergency (ER) | payer MEDICARE, OTHER ==
[2022-06-23] MEDS ORDERED: Ondansetron PF 4 MG/2 ML Vial ONE (11:00)
[2022-06-23] MEDS ORDERED: HYDROmorphone 0.5 MG/0.5 ML SYRINGE ONE ×2 (11:00→13:53)
[2022-06-23 11:24] LABS: #Eosinphils 0.1 thou/uL (0.0-0.7); #Lymphocytes 1.3 thou/uL (1.20-3.40); #Monocytes 0.7 thou/uL (0.11-0.59); #Neutrophils 12.5 thou/uL (1.40-6.50); %Basophils 0.2 % (0.0-1.0); %Eosinophils 0.4 % (0.0-10.0); %Lymphocytes 8.9 % (21.0-51.0); %Monocytes 4.9 % (0.0-10.0); %Neutrophils 85.6 % (42.0-75.0); Hemoglobin 12.5 g/dL (14.0-18.0); Mean Corpuscular HGB CONC 32.1 g/dL (32.0-36.0); Mean Corpuscular Hemoglobin 27.9 pg (27.0-31.0); Mean Corpuscular Volume 86.9 fl (78.0-98.0); Mean Platelet Volume 8.1 fL (7.4-10.4); Platelet Count 669 10x3/uL (130-400); RBC Distribution Width 18.7 % (11.5-14.5); Red Blood Cell (RBC) Count 4.47 mill/uL (4.70-6.10); White Blood Cell (WBC) Count 14.6 10x3/uL (4.8-10.8)
[2022-06-23 12:06] LABS: ALT (SGPT) 23 U/L (8-55); AST (SGOT) 18 U/L (5-34); Albumin 4.2 g/dL (3.4-4.8); Alkaline Phosphatase 115 U/L (40-110); Anion Gap 20 mmol/L (10-20); BUN (Urea Nitrogen) 20 mg/dL (8.4-25.7); Bilirubin, Total 0.9 mg/dL (0.2-1.2); Calc. Creatinine Clearance 0 mL/min (70-130); Calcium 10.3 mg/dL (7.8-10.44); Carbon Dioxide 21 mmol/L (23-31); Chloride 92 mmol/L (98-107); Estimated GFR 92; Globulin 3.7 g/dL (2.4-3.5); Glucose 165 mg/dL (80-115); Lipase 18 U/L (8-78); Potassium 3.6 mmol/L (3.5-5.1); Protein, Total 7.9 g/dL (5.8-8.1); Sodium 129 mmol/L (136-145)
[2022-06-23] MEDS ORDERED: Iopamidol-370 76% 500 ML 1 ML ONE (12:27)
[2022-06-23] MEDS ORDERED: Midazolam HCl 2 mg/2 ml Vial ONE (13:04)
[2022-06-23 15:32] LABS: SARS-CoV-2 NAA Rapid Test Not Detected (NotDetected)
== END 2022-06-23 17:00 | disposition short-term general hospital (02) ==
LOC: ERS 09:42
DX: K56.609 Unspecified intestinal obstruction, unspecified as to partial versus complete obstruction (principal); G89.18 Other acute postprocedural pain; Z20.822 Contact with and (suspected) exposure to COVID-19; I25.10 Atherosclerotic heart disease of native coronary artery without angina pectoris; I10 Essential (primary) hypertension
CPT/HCPCS: 74018; 74177; 80053; 83690; 85025; 96374; 96375; 96376; 99285; U0002; 36415; J1170; J2250; J2405